=== PATIENT | female | born 1950 | race Caucasian/White ===

== ENCOUNTER → 2017-11-24 | Outpatient (CLI) | payer OTHER | END | disposition home or self-care (01) | LOC: KCIC DEXA 08:13 | DX: Z12.31 Encounter for screening mammogram for malignant neoplasm of breast (principal); Z13.820 Encounter for screening for osteoporosis; M81.0 Age-related osteoporosis without current pathological fracture; M85.88 Other specified disorders of bone density and structure, other site; Z78.0 Asymptomatic menopausal state | CPT/HCPCS: 77063; 77067; 77080 ==

== ENCOUNTER → 2017-12-03 | Outpatient (CLI) | payer OTHER | END | disposition home or self-care (01) | LOC: KCIC US 12:34 | DX: N60.01 Solitary cyst of right breast (principal); N60.02 Solitary cyst of left breast | CPT/HCPCS: 76641 ==

== ENCOUNTER → 2020-01-04 | Outpatient (CLI) | payer MEDICARE ==
--- NOTE | 2020-01-04 14:54 | KCIC ---
Bilateral digital screening mammograms with 3-D tomosynthesis: Reason for examination: Routine screening. Comparison is made to previous study dated 11/24/2017. Bilateral mammograms in CC and oblique projections were obtained with 2-D imaging and 3-D tomosynthesis imaging on a Siemens Inspiration unit and reviewed on the workstation. Interpretation was made with the benefit of CAD. The skin and nipples show no abnormalities. No abnormal axillary lymph nodes are seen. The breast parenchyma is heterogeneously dense. (Breast density: Category C.) There appears to be a nodular density centrally in the 9:00 B position of the left breast. Further evaluation with ultrasound is recommended. There continues to be an intramammary lymph node present in the upper outer quadrant of the right breast which is stable. There are no other new dominant masses, suspicious calcifications or architectural distortion. Impression: Nodular density seen centrally in the left breast at approximately the 9:00 B position. Recommend further evaluation with ultrasound. Your patient's mammogram demonstrates that she has dense breast tissue (breast density category C or D), which could hide abnormalities, and if she has other risk factors for breast cancer that have been identified, she might benefit from supplemental screening tests that may be suggested by you as her ordering physician. Dense breast tissue, in and of itself, is a relatively common condition. Therefore, this information is not provided to cause undue concern, but rather to raise your awareness and to promote discussion with your patient regarding the presence of other risk factors, in addition to dense breast tissue. Your patient's mammography results will be sent to her. BI-RAD Category 0: Incomplete. Needs additional imaging evaluation. "Our facility is accredited by the [employer] Mammography [employer]." This patient's information has been entered into a reminder system for the patient to be notified with the results of her examination and a target date for the next mammogram. Electronically signed by: Vicky Srinivasan MD (01/04/2020 2:51 PM) [email or web address]
== END | disposition home or self-care (01) ==
LOC: KCIC MAMMO 10:57
PROVIDERS: ATTEND Family Medicine
DX: Z12.31 Encounter for screening mammogram for malignant neoplasm of breast (principal)
CPT/HCPCS: 77063; 77067

== ENCOUNTER → 2020-02-14 | Outpatient (CLI) | payer MEDICARE ==
--- NOTE | 2020-02-15 13:02 | KCIC ---
Left breast ultrasound: Reason for examination: Nodular density on screening mammogram. Comparison is made to mammographic exam dated 01/04/2020 and Limited left breast ultrasound examination dated 12/03/2017. Ultrasound examination of the left breast was performed with attention to the area of mammographic concern and the axilla. At the 8:00 position 5 cm from the nipple, there continues to be a small hypoechoic fibrocystic type lesion measuring 4.7 mm in greatest dimension which is unchanged. In the 9:00 position 7 cm from the nipple, there is a small hypoechoic benign-appearing fibrocystic type lesion measuring 2.7 mm in size. In the 9:00 position 4 cm from the nipple, there is a small hypoechoic circumscribed lesion in parallel orientation measuring 5.8 mm in greatest dimension with a benign fibroadenomatous appearance. In the 10:00 position 2 cm from the nipple, there is a cystic-appearing lesion measuring 7 mm in greatest dimension. At the 10:00 position 1 cm from the nipple, there is also however a slightly lobulated hypoechoic 6.9 x 5.2 mm nodule. There is some cystic ductal ectasia in the retroareolar position. No abnormal appearing lymph nodes are seen in the left axilla. IMPRESSION: Several small cystic and fibrocystic lesions which are subcentimeter in size. Hypoechoic lobulated nodule at the 10:00 position 1 cm from the nipple measuring 6.9 x 5.2 mm in size. A small malignancy cannot be excluded and further evaluation with ultrasound-guided biopsy is recommended. BI-RADS Category 4: Suspicious. These findings were discussed with the patient and the patient's physician, Dr. Urbano, was notified about these findings via message left on the physician sales operations assistant answering machine at 9:18 AM on 02/15/2020. "Our facility is accredited by the [employer] Mammography [employer]." This patient's information has been entered into a reminder system for the patient to be notified with the results of her examination and a target date for the next mammogram. Electronically signed by: Vicky Srinivasan MD (02/15/2020 12:59 PM) [email or web address]
== END | disposition home or self-care (01) ==
LOC: KCIC US 10:45
PROVIDERS: ATTEND Family Medicine
DX: R92.2 Inconclusive mammogram (principal); N63.22 Unspecified lump in the left breast, upper inner quadrant; N63.24 Unspecified lump in the left breast, lower inner quadrant
CPT/HCPCS: 76641

== ENCOUNTER → 2020-03-21 | Outpatient (CLI) | payer MEDICARE ==
--- NOTE | 2020-03-21 11:27 | RAD ---
Examination: 1. Ultrasound-guided left breast core needle biopsy 2. Left postprocedure mammogram INDICATION: 69-year-old woman with a suspicious 7 mm mass in the upper inner left breast at the 10:00 position 4 cm from the nipple. COMPARISON: Diagnostic left breast ultrasound of 02/14/2020, screening mammogram of 01/04/2020 TECHNIQUE: Informed consent was obtained and an appropriate procedural pause observed. Using standard sterile technique, ultrasound guidance and local residual multiple 14-gauge core biopsy samples of the mass in the left breast were obtained. Samples were placed in formalin and an S-shaped biopsy marker was deployed in the biopsy site and hemostasis ensured with direct breast compression for several minutes. Digital left postprocedure mammogram showed satisfactory deployment of the S-shaped marker in the superior periareolar left breast. No postbiopsy hematoma. Breast heterogeneously dense. Patient tolerated the procedure without incident. The puncture site was dressed and post procedure instructions reviewed prior to patient discharge. She was instructed to follow-up with her referring physician. IMPRESSION: Successful ultrasound-guided core needle biopsy of a suspicious 7 mm mass in the left breast at the 10:00 position 4 cm from the nipple. Pathology results are pending. An addendum will be issued once pathology results become available. Electronically signed by: Narendra Rossi MD (03/21/2020 11:24 AM) [id number]
== END | disposition home or self-care (01) ==
LOC: US 08:06
PROVIDERS: ATTEND Surgery
DX: N63.22 Unspecified lump in the left breast, upper inner quadrant (principal)
CPT/HCPCS: 19083; 77065; C1713; 19081; 76942

== ENCOUNTER → 2020-10-01 | Outpatient (CLI) | payer MEDICARE ==
--- NOTE | 2020-10-01 13:09 | KCIC ---
Left breast diagnostic digital mammograms with 3-D tomosynthesis: Reason for examination: Follow-up after biopsy. Comparison is made to previous study dated 01/04/2020. (mammograms in CC and oblique projections were obtained with 2-D imaging and 3-D tomosynthesis imagin g on a Siemens Inspiration unit and reviewed on the workstation. Interpretation was made with the cami efit of CAD. The skin and nipple show no abnormalities. No abnormal axillary lymph nodes are seen. The breast pare nchyma is heterogeneously dense. (Breast density: Category C.) There continue to be small nodular par enchymal densities present in the breast. There are no new dominant masses, suspicious calcifications or architectural distortion seen. Biopsy clip remains present at the 10:00 B position. Impression: Dense breasts with small nodules seen. Ultrasound follow-up is recommended. Your patient's mammogram demonstrates that she has dense breast tissue (breast density category C or D), which could hide abnormalities, and if she has other risk factors for breast cancer that have bee n identified, she might benefit from supplemental screening tests that may be suggested by you as her ordering physician. Dense breast tissue, in and of itself, is a relatively common condition. Therefo re, this information is not provided to cause undue concern, but rather to raise your awareness and t o promote discussion with your patient regarding the presence of other risk factors, in addition to d ense breast tissue. Your patient's mammography results will be sent to her. BI-RAD Category 0: Incomplete. Needs additional imaging evaluation. Patient is scheduled for follow-up ultrasound on , October 03, 2020. BI-RADS Category 0: Incomplete. Needs additional imaging evaluation. "Our facility is accredited by the [employer] Mammography [employer]." This patient's information has been entered into a reminder system for the patient to be notified wit h the results of her examination and a target date for the next mammogram. Electronically signed by: Vicky Srinivasan MD (10/01/2020 1:07 PM) [email or web address]
== END ==
LOC: KCIC MAMMO 08:45
PROVIDERS: ATTEND Surgery
DX: R92.2 Inconclusive mammogram (principal)
CPT/HCPCS: 77065; G0279; 77061

== ENCOUNTER → 2020-10-03 | Outpatient (CLI) | payer MEDICARE ==
--- NOTE | 2020-10-03 11:35 | KCIC ---
Left breast ultrasound: Reason for examination: Follow-up for nodules. Comparison is made to previous study dated 02/14/2020. Ultrasound examination of the left breast and axillary regions of the left breast was performed. At the 8:00 position 5 cm from the nipple, there continues to be a small 2.9 x 1.7 mm nodule which sh ows interval decrease in size. At the 9:00 position 7 cm from the nipple, there continues to be a sma ll 1.3 mm hypoechoic fibrocystic lesion which has shown a slight decrease in size. At the 9:00 positi on 4 cm from the nipple, there continues to be a small 6.8 mm hypoechoic circumscribed lesion which p robably represents a complicated cyst or fibroadenoma. In the 10:00 position 4 cm from the nipple, th ere is a 6.7 mm hypoechoic circumscribed lesion in parallel orientation which probably represents a c omplicated cyst. There is also a small 4.7 mm hypoechoic fibrocystic lesion at the 10:00 position 4 c m from the nipple. These nodules at 10:00 position change. No suspicious lesions are seen. There is d uctal ectasia in the retroareolar position. No abnormal appearing lymph nodes are seen in the left ax illa. IMPRESSION: Continued presence of benign-appearing nodules bilaterally which appear to be stable. Recommend rosa nued 6 month follow-up with ultrasound which can be performed at the time of bilateral mammograms. BI-RADS Category 3: Probably Benign. "Our facility is accredited by the [employer] Mammography [employer]." This patient's information has been entered into a reminder system for the patient to be notified wit h the results of her examination and a target date for the next mammogram. Electronically signed by: Vicky Srinivasan MD (10/03/2020 11:33 AM) [email or web address]
== END ==
LOC: KCIC US 08:32
PROVIDERS: ATTEND Family Medicine
DX: N60.42 Mammary duct ectasia of left breast (principal); N63.20 Unspecified lump in the left breast, unspecified quadrant; N63.10 Unspecified lump in the right breast, unspecified quadrant
CPT/HCPCS: 76641

== ENCOUNTER → 2021-03-26 | Outpatient (CLI) | payer MEDICARE ==
--- NOTE | 2021-03-26 10:38 | KCIC ---
Bilateral diagnostic digital mammograms with 3-D tomosynthesis: Reason for examination: Follow-up nodules. Comparison is made to previous studies dated back to 11/24/2017. Bilateral mammograms in CC and oblique projections were obtained with 2-D imaging and 3-D tomosynthes is imaging on a Siemens Inspiration unit and reviewed on the workstation. Interpretation was made dre rodriguez the benefit of CAD. The skin and nipples show no abnormalities. No abnormal axillary lymph nodes are seen. The breast par enchyma is heterogeneously dense. (Breast density: Category C.) There continued be small parenchymal asymmetries bilaterally which are unchanged. No suspicious calcifications are seen. Biopsy clip remai ns present on the left. Impression: Small parenchymal asymmetries without change. Ultrasound to follow. Your patient's mammogram demonstrates that she has dense breast tissue (breast density category C or D), which could hide abnormalities, and if she has other risk factors for breast cancer that have bee n identified, she might benefit from supplemental screening tests that may be suggested by you as her ordering physician. Dense breast tissue, in and of itself, is a relatively common condition. Therefo re, this information is not provided to cause undue concern, but rather to raise your awareness and t o promote discussion with your patient regarding the presence of other risk factors, in addition to d ense breast tissue. Your patient's mammography results will be sent to her. BI-RAD Category 0: Incomplete. Needs additional imaging evaluation. Left breast ultrasound: Comparison is made to previous studies dated back to 02/14/2020. Ultrasound examination of the left breast and axilla was performed. There continue to be several small anechoic and hypoechoic lesions measuring up to 7.5 mm in greatest dimension consistent with cysts, fibrocystic lesions and fibroadenoma which are stable. No suspiciou s-appearing nodules are seen. No abnormal appearing lymph nodes are seen in the axilla. IMPRESSION: Stable nodules in the left breast consistent with cysts, fibrocystic lesions and fibroadenoma. No suspicious lesion seen. Recommend routine mammographic follow-up. BI-RADS Category 2: Benign. "Our facility is accredited by the [employer] Mammography [employer]." This patient's information has been entered into a reminder system for the patient to be notified wit h the results of her examination and a target date for the next mammogram. Electronically signed by: Vicky Srinivasan MD (03/26/2021 10:35 AM) [email or web address]
== END ==
LOC: KCIC MAMMO 08:53
PROVIDERS: ATTEND Surgery
DX: N63.24 Unspecified lump in the left breast, lower inner quadrant (principal); N60.19 Diffuse cystic mastopathy of unspecified breast
CPT/HCPCS: 76641; 77066; G0279; 77062